=== PATIENT | female | born 1980 | race Native Hawaiian/Other Pacific Islander ===

== ENCOUNTER 2019-04-16 15:30 | Emergency (ER) | payer BC ==
[~2019-04-16] VITALS: Ht 162.6 cm; Wt 95.3 kg
[2019-04-16 15:30] VITALS: TEMP 97.9
[2019-04-16 16:50] VITALS: BP 108/54
== END 2019-04-16 16:50 | disposition home or self-care (01) ==
LOC: ED 15:30
DX: R07.89 Other chest pain (principal); R00.1 Bradycardia, unspecified
CPT/HCPCS: 93005; 99283

== ENCOUNTER 2022-03-17 13:40 | Emergency (ER) | payer OTHER ==
[~2022-03-17] VITALS: Ht 162.6 cm; Wt 89.8 kg
[2022-03-17 14:30] LABS: PLATELET COUNT 363 K/uL (152-353)
[2022-03-17 14:35] LABS: POTASSIUM 3.5 mmol/L (3.6-5.2)
[2022-03-17 14:38] LABS: PARTIAL THROMBOPLASTIN TIME 23.3 SECONDS (24.5-33.6)
[2022-03-17 15:05] VITALS: BP 127/61; TEMP 98.7
== END 2022-03-17 15:57 | disposition home or self-care (01) ==
LOC: ED 13:40
PROVIDERS: Hospitalist
DX: R07.89 Other chest pain (principal); K21.9 Gastro-esophageal reflux disease without esophagitis
CPT/HCPCS: 80053; 82550; 83880; 84484; 85027; 85610; 85730; 93005; 99283